=== PATIENT | female | born 2000 | race Two or more races ===

== ENCOUNTER 2023-09-05 12:17 | Outpatient (CLI) | payer OTHER, SELFPAY ==
[2023-09-05 23:20] LABS: Chlamydia DNA Amplified* NOT DETECTED (No Detected); GC DNA Amplified* NOT DETECTED (No Detected)
== END 2023-09-05 12:18 | disposition home or self-care (01) ==
LOC: LKVREF 12:17
PROVIDERS: PCP Advanced Practice Midwife; Visit Provider Advanced Practice Midwife
DX: N89.8 Other specified noninflammatory disorders of vagina (principal)
CPT/HCPCS: 87491; 87591